=== PATIENT | female | born 1960 | race Caucasian/White ===

== ENCOUNTER 2020-01-26 15:17 | Inpatient (IN) | payer MEDICARE ==
[~2020-01-26] VITALS: Ht 170.2 cm; Wt 111.1 kg
[2020-01-26 16:04] LABS: BASOPHILS 0.3 % (0-2); EOSINOPHILS 2.6 % (0-7); HEMATOCRIT 45.4 % (36.0-48.0); HEMOGLOBIN 14.8 g/dL (12-16); IMMATURE GRANULOCYTES 0.3 % (0-5); LYMPHOCYTES 12.8 % (15-50); MCH 28.9 pg (26.0-34.0); MCHC 32.6 g/dL (31.0-37.0); MCV 88.7 fL (80.0-100.0); MEAN PLATELET VOLUME 11.4 fL (7.4-10.4); MONOCYTES 9.6 % (2-11); NEUTROPHILS 74.4 % (40-80); PLATELET COUNT 192 10x3/uL (130-400); RBC 5.12 10x6/uL (4.00-5.40); RDW 15.1 % (11.5-14.5); WBC 12.5 10x3/uL (4.8-10.8)
[2020-01-26 16:25] LABS: CALC OSMOLALITY 278 mosm/kg (275-300); CALCIUM 9.1 mg/dL (8.5-10.1); CARBON DIOXIDE 28.3 mmol/L (21.0-32.0); CHLORIDE - SERUM 100 mmol/L (98-107); CREATININE - SERUM 0.8 mg/dL (0.6-1.3); GLUCOSE 122 mg/dL (74-106); POTASSIUM - SERUM 4.5 mmol/L (3.5-5.1); SODIUM 138 mmol/L (136-145); UREA NITROGEN 19 mg/dL (7-18); eGFR NON AFRICAN AMERICAN 77 mL/min (90-120)
[2020-01-26 16:30] LABS: ALBUMIN 3.7 g/dL (3.4-5.0); ALKALINE PHOSPHATASE 101 U/L (30-120); ALT (SGPT) 21 U/L (10-68); BILIRUBIN - TOTAL 0.34 mg/dL (0.2-1.3); PROTEIN - SERUM 7.4 g/dL (6.4-8.2)
[2020-01-26] MEDS ORDERED: LYRICA300 MG PO (18:13)
[2020-01-26] MEDS ORDERED: HYDROCODON-ACE1 EA10 PO (18:13)
[2020-01-26] MEDS ORDERED: FUROSEMIDE20 MG PO (18:14)
[2020-01-26] MEDS ORDERED: METOPROLOL TART50 MG PO (18:14)
[2020-01-26] MEDS ORDERED: GLUCOPHAGE1000 MG PO (18:15)
[2020-01-26] MEDS ORDERED: NEURONTIN 300300 MG PO (18:15)
[2020-01-26] MEDS ORDERED: GLUCOTROL 5 MG T5 MG PO (18:16)
[2020-01-26] MEDS ORDERED: DANTRIUM50 MG PO (18:17)
[2020-01-26] MEDS ORDERED: MORPHINE SULFAT15 M4 PO (18:17)
[2020-01-26] MEDS ORDERED: VALIUM10 MG PO (18:18)
[2020-01-26] MEDS ORDERED: CYMBALTA60 MG PO (18:18)
[2020-01-26] MEDS ORDERED: LEVEMIR FL100 UNIT/1 SC (19:45)
--- NOTE | 2020-01-26 19:50 | NUR ---
PATIENT RESTING IN BED WITH GUEST AT BEDSIDE. NO S/S OF DISTRESS. DENIES NEEDS AT THIS TIME. BED IN LOWEST POSITION AND CALL LIGHT WITHIN REACH. ENCOURAGED PATIENT TO CALL IF SHE HAS NEEDS. WILL CONTINUE TO MONITOR.
[2020-01-26 20:00] VITALS: BP 140/63
--- NOTE | 2020-01-26 21:23 | NUR ---
PAGED DR. BAL IN REGARDS TO PATIENT'S HOME MEDS PER HER REQUEST.
[2020-01-26 23:16] VITALS: BP 126/48
[2020-01-26 23:28] VITALS: BP 138/60; BMI 38.4
[2020-01-27 04:00] VITALS: BP 153/62
--- NOTE | 2020-01-27 08:04 | NUR ---
PT SITTING UP ON SIDE OF BED. RESP EVEN AND UNLABORED. PT REPORTS PAIN 8/10 AT THIS TIME AND REQUEST PAIN MEDICATION. INSTRUCTED PT PAIN MED TO BE ADMINISTERED. PT VOICES UNDERSTANDING. PT ASK ABOUT MORNING MEDICATIONS AND WHEN SHE WOULD RECEIVE THEM. INSTRUCTED PT MEDICATIONS ARE SCHEDULED FOR 0900, BUT STAFF WOULD BRING MEDICATIONS IN TO ADMINISTER SHORTLY. PT VOICES UNDERSTANDING. SALINE LOC TO LEFT WRIST, SITE WITHOUT REDNESS OR EDEMA. RIGHT FOOT REDENNED WITH NOTED SCAB/SORE TO RIGHT GREAT TOE AREA IN WHICH IS AMPUTATION. PT DENIES FURTHER NEEDS AT THIS TIME. CL WITHIN REACH. ENCOURAGED TO CALL WITH NEEDS. CONTINUE POC
[2020-01-27 08:25] VITALS: BP 109/55
[2020-01-27 10:46] VITALS: BMI 38.4
--- NOTE | 2020-01-27 12:12 | NUR ---
Pt is a current pt at [facility] wound clinic where she has an appt every Monday. She has a diabetic ulcer on right plantar foot measuring 2.5cm x 2.5cm. Periwound is calloused. There is also a small open area between #3 and #4 toes on right foot. 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 There is also a diabetic ulcer on left plantar foot measuring 1.5cm x 2cm x 0.8cm. It is covered with slough. The current tx for these wounds is calcium alginate and silver. Recommend continuing with this treatment and will use maxorb ag. Right foot - maxorb ag was applied after cleaning wounds with wound cleanser. It was covered with adaptic, 4x4s and secured with kerlix. Left foot - maxorb ag was loosely packed in wound bed (after cleansing) and was covered with 4x4s and secured with medipore tape. Pt tolerated well. Recommend daily dressing changes while in hospital. Wound care will continue monitoring.
[2020-01-27 12:13] VITALS: BP 139/56
[2020-01-27 13:24] VITALS: Ht 170.2 cm; Wt 111.1 kg
--- NOTE | 2020-01-27 14:01 | NUR ---
PT OFFERED SHOWER/BATH SET UP THREE TIMES THUS FAR, PT HAS REFUSED. WILL CONTINUE TO ENCOURAGE PT FOR SHOWER
[2020-01-27 16:52] VITALS: BP 146/66
--- NOTE | 2020-01-27 18:10 | NUR ---
PT IV DISCONTINUED TO LEFT WRIST DUE TO TENDERNESS AND REDNESS. IV RESITED TO RIGHT HAND X 2 STICKS. 22 GUAGE GOOD BLOOD RETURN, EASILY FLUSHED. PT ROME WELL.
--- NOTE | 2020-01-27 19:45 | NUR ---
DR WILLARD IN ROOM TO PERFORM AMPUTATION ON RT 2ND TOE AT THIS TIME AT BEDSIDE.
[2020-01-27 20:14] VITALS: BP 155/60
--- NOTE | 2020-01-27 20:30 | NUR ---
PM MEDS GIVEN AT THIS TIME. RATES PAIN IN RT FOOT 4. DRSG NOTED TO RT FOOT AND DR WILLARD PERFORMING DRSG CHANGE ON LT FOOT AT THIS TIME. RESP EVEN AND NONLABORED. O2 @ 2L/NC PRN BUT NOT IN USE AT THIS TIME. EDEMA NOTED TO BLE. SKIN ON TOES ON BILAT FEET ARE DRY,SCALY. NS @ 10 MLHR INFUSING IN RT HAND WITHOUT DIFF. AMBULATORY. VISITOR AT BEDSIDE. SR ELEVATED X2. CL IN REACH.
[2020-01-28] VITALS: BP 195/47
--- NOTE | 2020-01-28 01:01 | NUR ---
HAS BEEN RESTING WELL SO FAR THIS SHIFT. SBP IS ELEVATED BUT DBP IS LOW. VISITOR AT BEDSIDE. DENIES NEEDS. CL IN REACH.
--- NOTE | 2020-01-28 02:55 | NUR ---
MEDICATED WITH [facility]CO FOR C/O PAIN IN RT FOOT. CL IN REACH.
[2020-01-28 04:40] VITALS: BP 147/58
--- NOTE | 2020-01-28 04:44 | NUR ---
INDUSTRIAL GAS SERVICER HELPER JUST HERE NOW DRAWING AM LABS AND VANC TROUGH THAT WAS DUE AT 0400.
[2020-01-28 05:49] LABS: BASOPHILS 0.2 % (0-2); EOSINOPHILS 2.2 % (0-7); HEMATOCRIT 41.4 % (36.0-48.0); HEMOGLOBIN 13.4 g/dL (12-16); IMMATURE GRANULOCYTES 0.2 % (0-5); LYMPHOCYTES 17.6 % (15-50); MCH 28.2 pg (26.0-34.0); MCHC 32.4 g/dL (31.0-37.0); MCV 87.2 fL (80.0-100.0); MEAN PLATELET VOLUME 11.6 fL (7.4-10.4); MONOCYTES 9.9 % (2-11); NEUTROPHILS 69.9 % (40-80); PLATELET COUNT 202 10x3/uL (130-400); RBC 4.75 10x6/uL (4.00-5.40); RDW 14.9 % (11.5-14.5)
[2020-01-28 06:02] LABS: ANION GAP 10.4 mmol/L (8-16); CALCIUM 8.5 mg/dL (8.5-10.1); CARBON DIOXIDE 28.3 mmol/L (21.0-32.0); CREATININE - SERUM 0.9 mg/dL (0.6-1.3)
[2020-01-28 06:03] LABS: POTASSIUM - SERUM 3.7 mmol/L (3.5-5.1)
[2020-01-28 06:36] LABS: WBC 8.5 10x3/uL (4.8-10.8)
--- NOTE | 2020-01-28 07:53 | NUR ---
PT SITTING UP IN BED. RESP EVEN AND UNLABORED. REPORTS PAIN 3/10 AT THIS TIME, POST PAIN MEDICATION. IV TO RIGHT HAND SALINE LOC. SITE WITHOUT REDNESS OR EDEMA. DRESSING C/D/I TO RIGHT AND LEFT FEET. DENIES FURTHER NEEDS AT THIS TIME. CL WITHIN REACH. ENCOURAGED TO CALL WITH NEEDS. CONTINUE POC
--- NOTE | 2020-01-28 07:58 | MORECARE ---
CASE MANAGEMENT DISCHARGE SUMMARY PATIENT: MALLIKA STARR UNIT: [id number] ADM DATE: 01/26/20 AGE: 59 : 58 SEX: F ROOM/BED: D.2207 AUTHOR: RUFINO,DOC PHYSICIAN: REFERRING PHYSICIAN: SAM BAL MD DATE OF SERVICE: 01/28/20 Discharge Plan Patient Name: MALLIKA STARR Facility: [facility]:[place] : 1960 Planned Disposition: Home or Self Care Anticipated Discharge Date: Discharge Date: Expected LOS: Initial Reviewer: [email or web address] Initial Review Date: 01/26/2020 Generated: 01/28/20 8:57 am Comments DCP- Discharge Planning Updated by [email or web address]: Carmen Kirby on 01/28/20 6:[address] Patient Name: MALLIKA STARR Admission Status: ER Accout number: [id number] Admission Date: 01-26-2020 : 1960 Admission Diagnosis: Attending: SAM BAL Current LOS: 2 Anticipated DC Date: Planned Disposition: Home or Self Care Primary Insurance: MEDICARE A & B Discharge Planning Comments: CM met with patient to complete initial dc planning assessment. CM educated patient on the CM role and verbal consent given by patient to complete assessment. Patient lives a home with her adult daughter, sister and son. At discharge patient plans to return home and feels this is a safe discharge. CM discussed availability of home health, rehab services, and medical equipment. She did not think she will need home health and she is suppose to go to Dr Sher's office on Monday. She has a walker, WC, cane and glucometer. IMM served and explained. Copy in chart. Patient denied known discharge needs at this time. CM will continue to follow and will assist as needed with dc plans/needs. Squeegee Tender: Carmen Kirby DCPIA - Discharge Planning Initial Assessment Updated by [email or web address]: Carmen Kirby on 01/28/20 7:54 am * Is the patient Alert and Oriented? Yes * How many steps to enter\exit or inside your home? 3/ramp * PCP ROB * Pharmacy [facility] * Preadmission Environment Home with Family * ADLs Independent * Equipment Cane Glucometer Rolling Walker Walker Wheelchair * List name and contact numbers for known caregivers / representatives who currently or will assist patient after discharge: DARCI FUENTES (DAUGHTER) [phone] * Verbal permission to speak to the caregivers and representatives has been obtained from the patient. N/A * Community resources currently utilized None * Additional services required to return to the preadmission environment? No * Can the patient safely return to the preadmission environment? Yes * Has this patient been hospitalized within the prior 30 days at any hospital? No Patient Name: MALLIKA STARR Page [id number] at 0758 All edits/amendments must be made on the electronic document DICTATION DATE: 01/28/20756 [employer] COUNSELOR: MARIAMA 01/28/20756 RPT#: [id number] DC DATE: STATUS: ADM IN [facility] [address] [place] [address] END OF REPORT
[2020-01-28 08:02] VITALS: BP 146/61
[2020-01-28 12:37] VITALS: BP 132/54
[2020-01-28 17:03] VITALS: BP 151/58
[2020-01-28 20:00] VITALS: BP 121/52
--- NOTE | 2020-01-28 20:50 | NUR ---
LYING IN BED. ALERT AND ORIENTED X4. TALKING TO FAMILY IN ROOM. RATES PAIN IN RT FOOT 4. DRSG INTACT TO RT AND LT FOOT. NS @ 10 ML/HR INFUSING IN RT HAND. REFUSES SCDS AT THIS TIME. NO DISTRESS. SR ELEVATED X2. CL IN REACH.
[2020-01-29] VITALS: BP 128/61
[2020-01-29 04:00] VITALS: BP 135/57
[2020-01-29 05:28] LABS: BASOPHILS 0.4 % (0-2); EOSINOPHILS 3.8 % (0-7); HEMATOCRIT 42.8 % (36.0-48.0); HEMOGLOBIN 13.9 g/dL (12-16); IMMATURE GRANULOCYTES 0.3 % (0-5); LYMPHOCYTES 22.3 % (15-50); MCH 28.8 pg (26.0-34.0); MCHC 32.5 g/dL (31.0-37.0); MCV 88.6 fL (80.0-100.0); MEAN PLATELET VOLUME 11.6 fL (7.4-10.4); MONOCYTES 7.9 % (2-11); NEUTROPHILS 65.3 % (40-80); PLATELET COUNT 202 10x3/uL (130-400); RBC 4.83 10x6/uL (4.00-5.40); WBC 7.2 10x3/uL (4.8-10.8)
[2020-01-29 05:48] LABS: CALC OSMOLALITY 284 mosm/kg (275-300); CALCIUM 8.5 mg/dL (8.5-10.1); CARBON DIOXIDE 26.4 mmol/L (21.0-32.0); CHLORIDE - SERUM 107 mmol/L (98-107); CREATININE - SERUM 0.7 mg/dL (0.6-1.3); GLUCOSE 147 mg/dL (74-106); POTASSIUM - SERUM 3.9 mmol/L (3.5-5.1); SODIUM 141 mmol/L (136-145); UREA NITROGEN 14 mg/dL (7-18); eGFR NON AFRICAN AMERICAN 90 mL/min (90-120)
[2020-01-29] MEDS ORDERED: BACTRIM DS TAB1 EAC1 PO (07:51)
--- NOTE | 2020-01-29 08:00 | NUR ---
PT SITTING UP ON SIDE OF BED WITH DAUGHTER AT BEDSIDE. RESP EVEN AND UNLABORED. PT VOICES EAGERNESS TO D/C MD HAS ROUNDED AND VOICES D/C HOME. DISCUSSED D/C PROCEDURES AND NEED FOR DRESSING CHANGES TO BILAT LOWER EXT. PT VOICES UNDERSTANDING. SALINE LOC TO RIGHT HAND INTACT. SITE WITHOUT REDNESS OR EDEMA. DENIES FURTHER NEEDS AT THIS TIME. CL WITHIN REACH. ENCOURAGED TO CALL WITH NEEDS.
[2020-01-29 09:14] VITALS: BP 171/66
--- NOTE | 2020-01-29 15:36 | MORECARE ---
CASE MANAGEMENT DISCHARGE SUMMARY PATIENT: MALLIKA STARR UNIT: [id number] ADM DATE: 01/26/20 AGE: 59 : 58 SEX: F ROOM/BED: D.2207 AUTHOR: ECHO JOY PHYSICIAN: REFERRING PHYSICIAN: SAM BAL MD DATE OF SERVICE: 01/29/20 Discharge Plan Patient Name: MALLIKA STARR Facility: [facility]:[place] : 1960 Planned Disposition: Home or Self Care Anticipated Discharge Date: Discharge Date: 01/29/2020 Expected LOS: Initial Reviewer: [email or web address] Initial Review Date: 01/26/2020 Generated: 01/29/20 4:36 pm Comments DCP- Discharge Planning Updated by [email or web address]: Carmen Kirby on 01/29/20 2:[address] PATIENT DISCHARGED HOME WITH [employer], LORY WITH [employer] CAME AND PICKED UP PAPERWORK, I ALSO SPOKE WITH JOSHUA WITH [employer] TO LET HER KNOW TOY SIGNED. DCP- Discharge Planning Updated by [email or web address]: Carmen Kirby on 01/28/20 6:[address] Patient Name: MALLIKA STARR Admission Status: ER Accout number: [id number] Admission Date: 01-26-2020 : 1960 Admission Diagnosis: Attending: SAM BAL Current LOS: 2 Anticipated DC Date: Planned Disposition: Home or Self Care Primary Insurance: MEDICARE A & B Discharge Planning Comments: CM met with patient to complete initial dc planning assessment. CM educated patient on the CM role and verbal consent given by patient to complete assessment. Patient lives a home with her adult daughter, sister and son. At discharge patient plans to return home and feels this is a safe discharge. CM discussed availability of home health, rehab services, and medical equipment. She did not think she will need home health and she is suppose to go to Dr Sher's office on Monday. She has a walker, WC, cane and glucometer. IMM served and explained. Copy in chart. Patient denied known discharge needs at this time. CM will continue to follow and will assist as needed with dc plans/needs. Cover Seamer: Carmen Kirby DCPIA - Discharge Planning Initial Assessment Updated by [email or web address]: Carmen Kirby on 01/28/20 7:54 am * Is the patient Alert and Oriented? Yes * How many steps to enter\exit or inside your home? 3/ramp * PCP ROB * [facility] * Preadmission Environment Home with Family * ADLs Independent * Equipment Cane Glucometer Rolling Walker Walker Wheelchair * List name and contact numbers for known caregivers / representatives who currently or will assist patient after discharge: DARCI FUENTES (DAUGHTER) [phone] * Verbal permission to speak to the caregivers and representatives has been obtained from the patient. N/A * Community resources currently utilized None * Additional services required to return to the preadmission environment? No * Can the patient safely return to the preadmission environment? Yes * Has this patient been hospitalized within the prior 30 days at any hospital? No Coverage Notice Reviewer: [email or web address] - Carmen Kirby Notice Issued Date-Time: 01/28/2020 7:55 Notice Type: IM Discharge Notice Notice Delivered To: Patient Relationship to Patient: Supervisor Sleeping Bag Department Name: Delivery Method: HAND - Hand Delivered Shelly Days: Prior Verbal Notification: Recipient Understood Notice: Yes Recipient Signature: Yes Med Rec Note Co-signed by Attending: Coverage Notice Comment: Last DP export: 01/28/20 6:58 am Patient Name: MALLIKA STARR Page [phone] at 1536 All edits/amendments must be made on the electronic document DICTATION DATE: 01/29/20 1536 [employer]LECT[employer] SALES REPRESENTATIVE: MARIAMA 01/29/20 1536 RPT#: [id number] DC DATE:01/29/20 STATUS: DIS IN [facility] [address] [place] [address] END OF REPORT
--- NOTE | 2020-01-30 08:39 | MORECARE ---
CASE MANAGEMENT DISCHARGE SUMMARY PATIENT: MALLIKA STARR UNIT: [id number] ADM DATE: 01/26/20 AGE: 59 : 58 SEX: F ROOM/BED: D.2207 AUTHOR: ECHO JOY PHYSICIAN: REFERRING PHYSICIAN: SAM BAL MD DATE OF SERVICE: 01/30/20 Discharge Plan Patient Name: MALLIKA STARR Facility: [facility]:[place] : 1960 Planned Disposition: Home or Self Care Anticipated Discharge Date: Discharge Date: 01/29/2020 Expected LOS: Initial Reviewer: [email or web address] Initial Review Date: 01/26/2020 Generated: 01/30/20 9:38 am Comments DCP- Discharge Planning Updated by [email or web address]: Carmen Kirby on 01/29/20 2:[address] PATIENT DISCHARGED HOME WITH [employer] LORY WITH [email or web address] CAME AND PICKED UP PAPERWORK, I ALSO SPOKE WITH JOSHUA WITH [employer] TO LET HER KNOW TOY SIGNED. DCP- Discharge Planning Updated by [email or web address]: Carmen Kirby on 01/28/20 6:[address] Patient Name: MALLIKA STARR Admission Status: ER Accout number: [id number] Admission Date: 01-26-2020 : 1960 Admission Diagnosis: Attending: SAM BAL Current LOS: 2 Anticipated DC Date: Planned Disposition: Home or Self Care Primary Insurance: MEDICARE A & B Discharge Planning Comments: CM met with patient to complete initial dc planning assessment. CM educated patient on the CM role and verbal consent given by patient to complete assessment. Patient lives a home with her adult daughter, sister and son. At discharge patient plans to return home and feels this is a safe discharge. CM discussed availability of home health, rehab services, and medical equipment. She did not think she will need home health and she is suppose to go to Dr Sher's office on Monday. She has a walker, WC, cane and glucometer. IMM served and explained. Copy in chart. Patient denied known discharge needs at this time. CM will continue to follow and will assist as needed with dc plans/needs. Hide Trimmer: Carmen Kirby DCPIA - Discharge Planning Initial Assessment Updated by [email or web address]: Carmen Kirby on 01/28/20 7:54 am * Is the patient Alert and Oriented? Yes * How many steps to enter\exit or inside your home? 3/ramp * PCP ROB * [facility] [place] * Preadmission Environment Home with Family * ADLs Independent * Equipment Cane Glucometer Rolling Walker Walker Wheelchair * List name and contact numbers for known caregivers / representatives who currently or will assist patient after discharge: DARCI FUENTES (DAUGHTER) [phone] * Verbal permission to speak to the caregivers and representatives has been obtained from the patient. N/A * Community resources currently utilized None * Additional services required to return to the preadmission environment? No * Can the patient safely return to the preadmission environment? Yes * Has this patient been hospitalized within the prior 30 days at any hospital? No Coverage Notice Reviewer: [email or web address] - Carmen Kirby Notice Issued Date-Time: 01/28/2020 7:55 Notice Type: IM Discharge Notice Notice Delivered To: Patient Relationship to Patient: Multiple Games Dealer Name: Delivery Method: HAND - Hand Delivered Shelly Days: Prior Verbal Notification: Recipient Understood Notice: Yes Recipient Signature: Yes Med Rec Note Co-signed by Attending: Coverage Notice Comment: Last DP export: 01/29/20 2:36 p Patient Name: MALLIKA STARR Page [phone] at 0839 All edits/amendments must be made on the electronic document DICTATION DATE: 01/30/20837 CARE TRANSITIONS NURSE: MARIAMA 01/30/20837 RPT#: [id number] DC DATE:01/29/20 STATUS: DIS IN [facility] [address] [place] [address] END OF REPORT
== END 2020-01-29 10:25 | disposition home health service (06) | DRG 617 ==
LOC: D.ER 15:17 → D.MS 17:16
PROVIDERS: Family Medicine; ADMIT Family Medicine; ATTEND Family Medicine
PROC: 0Y6R0Z1 Detachment at Right 2nd Toe, High, Open Approach (ICD-10-PCS; principal; 2020-01-27)
DX: E11.69 Type 2 diabetes mellitus with other specified complication (principal); L03.115 Cellulitis of right lower limb; M86.8X7 Other osteomyelitis, ankle and foot; E11.621 Type 2 diabetes mellitus with foot ulcer; L97.519 Non-pressure chronic ulcer of other part of right foot with unspecified severity; E11.628 Type 2 diabetes mellitus with other skin complications; I10 Essential (primary) hypertension; B95.62 Methicillin resistant Staphylococcus aureus infection as the cause of diseases classified elsewhere

== ENCOUNTER → 2020-10-21 10:04 | Outpatient (CLI) | payer MEDICARE ==
[2020-01-27 13:24] VITALS: BMI 38.4
[~2020-10-21 10:04] MED LIST: BACTRIM DS TAB1 EAC1 PO; CYMBALTA60 MG PO; DANTRIUM50 MG PO; FUROSEMIDE20 MG PO; GLUCOPHAGE1000 MG PO; GLUCOTROL 5 MG T5 MG PO; HYDROCODON-ACE1 EA10 PO; LEVEMIR FL100 UNIT/1 SC; LYRICA300 MG PO; METOPROLOL TART50 MG PO; MORPHINE SULFAT15 M4 PO; NEURONTIN 300300 MG PO; VALIUM10 MG PO
== END | disposition home or self-care (01) ==
LOC: D.RAD 10:04
PROVIDERS: ATTEND Internal Medicine Gastroenterology
DX: R14.0 Abdominal distension (gaseous) (principal); R19.4 Change in bowel habit; R10.13 Epigastric pain

== ENCOUNTER → 2020-11-11 07:39 | Outpatient (CLI) | payer MEDICARE ==
[2020-01-27 13:24] VITALS: BMI 38.4
== END | disposition home or self-care (01) ==
LOC: D.NM 10-28 11:30
PROVIDERS: ATTEND Internal Medicine Gastroenterology
DX: R10.13 Epigastric pain (principal); R19.4 Change in bowel habit; R68.81 Early satiety; K21.9 Gastro-esophageal reflux disease without esophagitis; R13.10 Dysphagia, unspecified; R14.0 Abdominal distension (gaseous)